=== PATIENT | female | born 1995 | race Two or more races ===

== ENCOUNTER 2021-09-27 04:55 | Emergency (ER) | payer OTHER, SELFPAY ==
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
[2021-09-27 05:32] VITALS: BP 190/138; PULSE 92; RESP 18; TEMP 36.2; O2SAT 100; BMI 32.8
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
[2021-09-27 09:30] LABS: MANUAL DIFF FLAG NO
[2021-09-27 09:31] LABS: Appearance Urine CLEAR; Color Urine YELLOW; Glucose Urine UA NEG (NEG); Leukocyte Esterase Urine NEG (NEG); Nitrite Urine NEG (NEG); PH 5.5 (5.0-8.0); Urine Blood NEG (NEG); Urine Ketones NEG (NEG); Urine Protein TRACE MG/DL (NEG-TRACE)
[2021-09-27 09:32] LABS: Basophils Percent Auto 0.7 % (0-2); Eosinophils Absolute Auto 0.1 X10*3/uL (0.0-0.4); Eosinophils Percent Auto 1.7 % (0-4); Hematocrit 38.4 % (37.0-47.0); Hemoglobin 13.6 g/dl (12.0-16.0); Imm Gran Abs Auto 0.02 X10*3/uL (0.00-0.03); Imm Gran Pct Auto 0.3 % (0.0-0.4); Lymphocytes Absolute Auto 1.7 X10*3/uL (1.2-4.9); Lymphocytes Percent Auto 29.7 % (20-40); Mean Corpuscular HGB Conc 35.4 g/dl (31.0-35.0); Mean Corpuscular Hemoglobin 28.8 pg (27.0-33.0); Mean Corpuscular Volume 81.4 fL (80.0-98.0); Mean Platelet Volume 12.2 fL (9.4-12.3); Monocytes Absolute Auto 0.3 X10*3/uL (0.1-1.2); Monocytes Percent Auto 5.7 % (2-11); Neutrophils Absolute Auto 3.6 x10*3/uL (2.0-8.3); Neutrophils Percent Auto 61.9 % (45-73); Platelet Count 239 X10*3/uL (160-400); Red Blood Count 4.72 X10*6/uL (4.20-5.50); Red Cell Distribution Width 13.8 % (11.0-16.0); White Blood Count 5.8 X10*3/uL (4.8-10.8)
[2021-09-27] MEDS: 0.9 % Sodium Chloride 1,000 ML 999 ML IV (09:34)
[2021-09-27] MEDS: ondansetron HCL 4 MG/2 ML VIAL IVPUSH (09:35)
[2021-09-27] MEDS: Metoclopramide HCl 10 MG/2 ML VIAL IVPUSH (09:36)
[2021-09-27] MEDS: Acetaminophen 325 MG TABLET 650 MG PO (09:40)
[2021-09-27] MEDS: diazePAM 5 MG TABLET PO (09:40)
[2021-09-27 09:42] LABS: RBC Urine 0-2 /HPF (0); WBC Urine 0-2 /HPF (0-4)
[2021-09-27 09:43] LABS: Bacteria Urine TRACE /LPF; Mucus Urine TRACE /LPF; Squamous Epithelial Cell Urine TRACE /LPF
[2021-09-27 09:48] LABS: COVID-19 Test Negative (Negative); IDNOW Serial# 9DD0AD1C
[2021-09-27 09:54] LABS: Alanine Aminotransferase 6 U/L (0-31); Albumin Level 4.3 g/dL (3.5-5.0); Alkaline Phosphatase 50 U/L (39-117); Anion Gap 13 (12-20); Aspartate Amino Transferase 11 U/L (5-31); Bilirubin Total 0.5 mg/dL (0.0-1.0); Blood Urea Nitrogen 28 mg/dL (9-16); Calcium 9.6 mg/dL (8.4-10.2); Carbon Dioxide 22 mmol/L (22-29); Chloride 109 mmol/L (96-108); Estimated Glomerular Filt Rate 42; Glucose Random 92 mg/dL (60-115); Potassium 4.4 mmol/L (3.3-5.1); Sodium 140 mmol/L (135-145); Total Protein 7.2 g/dL (6.5-8.0)
[2021-09-27 10:08] LABS: HCG Quantitative < 2 mIU/mL
[2021-09-27 10:31] VITALS: BP 165/114; PULSE 91; RESP 16; TEMP 36.6; O2SAT 97
[2021-09-27] MEDS: Butalb/Acetamin/Caff 50/325/40 TABLET 1 TAB PO (12:38)
== END 2021-09-27 12:58 | disposition home or self-care (01) ==
PROVIDERS: Physician Assistant; Emergency Provider Emergency Medicine; PCP Internal Medicine
DX: M54.2 Cervicalgia (principal); G43.009 Migraine without aura, not intractable, without status migrainosus; M54.6 Pain in thoracic spine; Z20.822 Contact with and (suspected) exposure to COVID-19; Z79.899 Other long term (current) drug therapy
CPT/HCPCS: 36415; 70450; 72125; 72128; 80053; 81001; 82550; 84702; 85025; 87635; 96374; 96376; 99284; J2405; J2765

== ENCOUNTER 2022-02-19 07:44 | Outpatient (REF) | payer OTHER, SELFPAY ==
--- NOTE | ~2022-02-19 | XR_ITS ---
EXAMINATION: XR SHOULDER, LEFT CLINICAL INFORMATION: Pain COMPARISON: None TECHNIQUE: AP external rotation, Grashey, scapular Y, and axillary views of the left shoulder. FINDINGS: The bones and soft tissues are normal. No fracture. Glenohumeral and acromioclavicular alignment is anatomic with normal joint space. No abnormal soft tissue calcifications. XR/XR shoulder LT min 2V IMPRESSION: Normal left shoulder.
== END 2022-02-19 07:45 | disposition home or self-care (01) ==
LOC: HO.HOSX 07:44
PROVIDERS: Visit Provider Physician Assistant
DX: M25.812 Other specified joint disorders, left shoulder (principal); M75.50 Bursitis of unspecified shoulder
CPT/HCPCS: 20610; 73030; 99202; J1020

== ENCOUNTER 2022-03-24 17:32 | Emergency (ER) | payer OTHER, SELFPAY ==
[2022-03-24] VITALS (8 sets, daily range): BP systolic 181–203; BP diastolic 122–142; PULSE 76–92; RESP 16–18; TEMP 36.9; O2SAT 97–99; BMI 34.2
--- NOTE | ~2022-03-24 | XR_ITS ---
EXAMINATION: XR CHEST CLINICAL INFORMATION: Cough. COMPARISON: None TECHNIQUE: 2 views of the chest were obtained. FINDINGS: No significant abnormality is noted involving the heart, lungs, mediastinum, bony thorax or soft tissues. XR/XR chest 2V IMPRESSION: Unremarkable examination.
[2022-03-24] MEDS: Acetaminophen 325 MG TABLET 650 MG PO (20:00)
[2022-03-24 20:06] LABS: MANUAL DIFF FLAG NO
[2022-03-24 20:09] LABS: Basophils Percent Auto 0.4 % (0-2); Eosinophils Absolute Auto 0.3 X10*3/uL (0.0-0.4); Eosinophils Percent Auto 3.9 % (0-4); Hematocrit 40.2 % (37.0-47.0); Hemoglobin 14.1 g/dl (12.0-16.0); Imm Gran Abs Auto 0.01 X10*3/uL (0.00-0.03); Imm Gran Pct Auto 0.1 % (0.0-0.4); Lymphocytes Absolute Auto 2.2 X10*3/uL (1.2-4.9); Lymphocytes Percent Auto 30.6 % (20-40); Mean Corpuscular HGB Conc 35.1 g/dl (31.0-35.0); Mean Corpuscular Hemoglobin 27.2 pg (27.0-33.0); Mean Corpuscular Volume 77.6 fL (80.0-98.0); Mean Platelet Volume 10.6 fL (9.4-12.3); Monocytes Absolute Auto 0.8 X10*3/uL (0.1-1.2); Monocytes Percent Auto 10.6 % (2-11); Neutrophils Absolute Auto 3.9 x10*3/uL (2.0-8.3); Neutrophils Percent Auto 54.4 % (45-73); Platelet Count 233 X10*3/uL (160-400); Red Blood Count 5.18 X10*6/uL (4.20-5.50); Red Cell Distribution Width 15.1 % (11.0-16.0); White Blood Count 7.1 X10*3/uL (4.8-10.8)
[2022-03-24 20:24] LABS: Alanine Aminotransferase 19 U/L (0-31); Albumin Level 4.3 g/dL (3.5-5.0); Alkaline Phosphatase 67 U/L (39-117); Anion Gap 13 (12-20); Aspartate Amino Transferase 20 U/L (5-31); Bilirubin Total 0.5 mg/dL (0.0-1.0); Blood Urea Nitrogen 18 mg/dL (9-16); Calcium 8.9 mg/dL (8.4-10.2); Carbon Dioxide 22 mmol/L (22-29); Chloride 108 mmol/L (96-108); Estimated Glomerular Filt Rate 47; Glucose Random 98 mg/dL (60-115); Potassium 4.2 mmol/L (3.3-5.1); Sodium 139 mmol/L (135-145); Total Protein 7.3 g/dL (6.5-8.0)
[2022-03-24 20:26] LABS: Influenza A Negative (Negative); Influenza B2 Negative (Negative)
[2022-03-24 20:28] LABS: COVID-19 Test Negative (Negative); IDNOW Serial# 9DB6401D
--- NOTE | 2022-03-24 21:01 | ED.URI ---
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 Patient does take blood pressure medication but her blood pressure has been significantly elevated. Related Data Home Medications Medication Instructions Recorded Confirmed amitriptyline 25 mg tablet 0 mg PO 02/19/22 amlodipine 10 mg tablet 10 mg PO DAILY 02/19/22 carvedilol 25 mg tablet 25 mg PO BID 02/19/22 fluticasone propionate 50 2 spray intranasal DAILY 02/19/22 mcg/actuation nasal spray,suspension hydralazine 25 mg tablet 25 mg PO TID 02/19/22 pantoprazole 40 mg tablet,delayed 80 mg PO BID PRN 02/19/22 release tacrolimus 5 mg capsule, 5 mg PO BID 02/19/22 immediate-release Previous Rx's Medication Instructions Recorded qramgdwkfd-knslzoijywwss-vygqrtdh 1 cap PO Q8H PRN pain/migraine #7 09/27/21 50 mg-300 mg-40 mg capsule caps (Fioricet) diazepam 5 mg tablet (Valium) 5 mg PO BID 2 days #4 tabs 09/27/21 ondansetron 4 mg disintegrating 4 mg PO Q8H 2 days #6 tabs 09/27/21 tablet prednisone 20 mg tablet 40 mg PO DAILY 3 days #6 tabs 09/27/21 benzonatate 200 mg capsule 200 mg PO TID PRN cough #10 caps 03/24/22 Allergies Allergy/AdvReac Type Severity Reaction Status Date / Time amoxicillin Allergy Unknown Verified 03/24/22 19:52 Cephalosporins Allergy Unknown Verified 03/24/22 19:52 Penicillins Allergy Unknown Verified 03/24/22 19:52 sulfamethoxazole Allergy Unknown Verified 03/24/22 19:52 [From Bactrim] trimethoprim [From Bactrim] Allergy Unknown Verified 03/24/22 19:52 Review of Systems Review of Systems: Pertinent positives and negatives as stated in HPI 10 point review of systems is otherwise negative. 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 GENERAL: Well developed, well nourished, in no acute distress. HEAD: Normocephalic/atraumatic EYES: PERRLA, EOMI EARS: Ext canals without abnormality, TMs non-bulging and non-erythematous; mild bulging on the left TM with erythema NOSE: Nares patent bilateral OROPHARYNX: no oral lesions noted, posterior pharynx clear and non-erythematous without noted tonsillar enlargement/erythema/exudates NECK: Supple, no adenopathy LUNGS: Normal breath sounds. No adventitious sounds or accessory muscle use. SpO2<98> CARDIOVASCULAR: Regular rate and rhythm without noted murmurs, no JVD or lower extremity edema. ABDOMEN: Soft, non-tender, non-distended with bowel sounds. MUSCULOSKELETAL: No tenderness, deformities, or effusions noted on gross inspection. EXTREMITIES: No cyanosis, clubbing or edema. SKIN: Inspection of the skin reveals no rashes NEUROLOGIC: Alert and oriented x 4. Strength and sensation to light touch were grossly intact x 4. Course Course Course Narrative: 26-year-old female with history and clinical presentation most consistent with viral syndrome and hypertension. Will control blood pressure, give IV fluids and on review of all investigations COVID-19 and influenza are both negative. Low clinical suspicion for meningitis Review of all investigations continues to show hypertension but on re-evaluation patient is feeling better after the IV fluids and Tessalon Perles. A total of 20 mg of labetalol was given to the patient as well as 0.5 mg of Klonopin and patient's blood pressure remains at 180s over 128, she is nonfocal in denies any chest pain but is requesting to go home and will receive 200 mg labetalol p.o. in be discharged home. MDM - URI/Sore Throat Lab Data Result diagrams: 03/24/22 20:01 03/24/22 20:01 Labs: Lab Results 03/24/22 03/24/22 03/24/22 Range/Units 19:54 20:01 20:01 WBC 7.1 (4.8-10.8) X10*3/uL RBC 5.18 (4.20-5.50) X10*6/uL Hgb 14.1 (12.0-16.0) g/dl Hct 40.2 (37.0-47.0) % MCV 77.6 L (80.0-98.0) fL MCH 27.2 (27.0-33.0) pg MCHC 35.1 H (31.0-35.0) g/dl RDW 15.1 (11.0-16.0) % Plt Count 233 (160-400) X10*3/uL MPV 10.6 (9.4-12.3) fL Immature Gran % (Auto) 0.1 (0.0-0.4) % Neut % (Auto) 54.4 (45-73) % Lymph % (Auto) 30.6 (20-40) % [place] % (Auto) 10.6 (2-11) % Eos % (Auto) 3.9 (0-4) % Baso % (Auto) 0.4 (0-2) % Lymph # (Auto) 2.2 (1.2-4.9) X10*3/uL [place] # (Auto) 0.8 (0.1-1.2) X10*3/uL Eos # (Auto) 0.3 (0.0-0.4) X10*3/uL Baso # (Auto) 0.0 (0.0-0.2) X10*3/uL Abs Immat Gran (auto) 0.01 (0.00-0.03) X10*3/uL Absolute Neuts (auto) 3.9 (2.0-8.3) x10*3/uL Absolute Nucleated RBC 0.000 (0.0-0.012) X10*3/uL Nucleated RBC % (auto) 0.0 (0.0-0.2) /100WBC Sodium 139 (135-145) mmol/L Potassium 4.2 (3.3-5.1) mmol/L Chloride 108 (96-108) mmol/L Carbon Dioxide 22 (22-29) mmol/L Anion Gap 13 (12-20) BUN 18 H (9-16) mg/dL Creatinine 1.37 (0.5-1.4) mg/dL Estim Creat Clear Calc 59.0 Estimated GFR 47 Random Glucose 98 (60-115) mg/dL Calcium 8.9 D (8.4-10.2) mg/dL Total Bilirubin 0.5 (0.0-1.0) mg/dL AST 20 D (5-31) U/L ALT 19 (0-31) U/L Alkaline Phosphatase 67 D (39-117) U/L Total Protein 7.3 (6.5-8.0) g/dL Albumin 4.3 (3.5-5.0) g/dL TSH 0.84 (0.32-4.0) uIU/mL COVID-19 (SUZY) Negative (Negative) COVID-19 Clin Com See Note Influenza Type A (MICHELINE) (Negative) Influenza Type B (MICHELINE) (Negative) Influenza A & B Note 03/24/22 Range/Units 20:01 WBC (4.8-10.8) X10*3/uL RBC (4.20-5.50) X10*6/uL Hgb (12.0-16.0) g/dl Hct (37.0-47.0) % MCV (80.0-98.0) fL MCH (27.0-33.0) pg MCHC (31.0-35.0) g/dl RDW (11.0-16.0) % Plt Count (160-400) X10*3/uL MPV (9.4-12.3) fL Immature Gran % (Auto) (0.0-0.4) % Neut % (Auto) (45-73) % Lymph % (Auto) (20-40) % [place] % (Auto) (2-11) % Eos % (Auto) (0-4) % Baso % (Auto) (0-2) % Lymph # (Auto) (1.2-4.9) X10*3/uL [place] # (Auto) (0.1-1.2) X10*3/uL Eos # (Auto) (0.0-0.4) X10*3/uL Baso # (Auto) (0.0-0.2) X10*3/uL Abs Immat Gran (auto) (0.00-0.03) X10*3/uL Absolute Neuts (auto) (2.0-8.3) x10*3/uL Absolute Nucleated RBC (0.0-0.012) X10*3/uL Nucleated RBC % (auto) (0.0-0.2) /100WBC Sodium (135-145) mmol/L Potassium (3.3-5.1) mmol/L Chloride (96-108) mmol/L Carbon Dioxide (22-29) mmol/L Anion Gap (12-20) BUN (9-16) mg/dL Creatinine (0.5-1.4) mg/dL Estim Creat Clear Calc Estimated GFR Random Glucose (60-115) mg/dL Calcium (8.4-10.2) mg/dL Total Bilirubin (0.0-1.0) mg/dL AST (5-31) U/L ALT (0-31) U/L Alkaline Phosphatase (39-117) U/L Total Protein (6.5-8.0) g/dL Albumin (3.5-5.0) g/dL TSH (0.32-4.0) uIU/mL COVID-19 (SUZY) (Negative) COVID-19 Clin Com Influenza Type A (MICHELINE) Negative (Negative) Influenza Type B (MICHELINE) Negative (Negative) Influenza A & B Note See Note Discharge Plan Discharge Clinical Impression: Viral syndrome, Hypertensive urgency, Cough Patient Disposition: Home, Self-Care Instructions: Viral Syndrome (ED), Hypertensive Crisis (ED), Acute Cough (ED) Additional Instructions: 1. Tylenol 1000 mg, orally, every 6 hours as needed for pain control. Do not exceed 4000 mg within 24 hours. 2. Continue to take all of your home medication as prescribed. 3. I recommend that you continue to test your self at home for COVID-19 as you may become positive over the next couple of days. 4. Please call the office of your primary care provider in the morning to set up an appointment for re-evaluation and further management of your blood pressure. Return to the ER for worsening symptoms. Prescriptions: New benzonatate 200 mg capsule 200 mg PO TID PRN (Reason: cough) Qty: 10 0RF No Action ondansetron 4 mg tablet,disintegrating 4 mg PO Q8H 2 Days Qty: 6 0RF diazepam [Valium] 5 mg tablet 5 mg PO BID 2 Days Qty: 4 0RF [id number]-[id number] [Fioricet] 50-300-40 mg capsule 1 cap PO Q8H PRN (Reason: pain/migraine) Qty: 7 0RF prednisone 20 mg tablet 40 mg PO DAILY 3 Days Qty: 6 0RF pantoprazole 40 mg tablet,delayed release (DR/EC) 80 mg PO BID PRN amlodipine 10 mg tablet 10 mg PO DAILY carvedilol 25 mg tablet 25 mg PO BID tacrolimus 5 mg capsule 5 mg PO BID amitriptyline 25 mg tablet 0 mg PO hydralazine 25 mg tablet 25 mg PO TID fluticasone propionate 50 mcg/actuation spray,suspension 2 spray intranasal DAILY Referrals: Aisha Asencio MD [Primary Care Provider] -
[2022-03-24 21:12] LABS: Thyroid Stimulating Hormone 0.84 uIU/mL (0.32-4.0)
[2022-03-24] MEDS: Benzonatate 100 MG CAPSULE 200 MG PO (21:17)
[2022-03-24] MEDS: 0.9 % Sodium Chloride 500 ML 999 ML IV (21:22)
[2022-03-24] MEDS: clonazePAM 0.5 MG TABLET PO (22:44)
[2022-03-24] MEDS: Labetalol HCL 200 MG TABLET PO (23:57)
== END 2022-03-25 00:14 | disposition home or self-care (01) ==
PROVIDERS: Emergency Provider Student in an Organized Health Care Education/Training Program; PCP Internal Medicine
DX: B34.9 Viral infection, unspecified (principal); I16.0 Hypertensive urgency; R05.9 Cough, unspecified; Z20.822 Contact with and (suspected) exposure to COVID-19; Z79.899 Other long term (current) drug therapy
CPT/HCPCS: 71046; 80053; 84443; 85025; 87502; 87635; 96374; 96376; 99284; 99285

== ENCOUNTER 2022-03-31 15:50 | Outpatient (RCR) | payer OTHER, SELFPAY ==
--- NOTE | 2022-04-01 14:43 | MHC.PT.EP ---
[facility] [place] [facility] [place] [facility] [place] Office [address] Silvestre Serrano [address] [phone] F: [phone] F: [phone] F: [phone] F: [phone] Physical Therapy Plan of Care Date of Evaluation: Date of Surgery: N/A Diagnosis: left shoulder pain (RC) Assessment: pt is [age] y/o presenting to physical therapy w/ referring diagnosis of bursitis of L shoulder. Impairments include pain, decreased range of motion, decreased strength, impaired functional mobility, impaired postural awareness, and gait deviations. pt is a good candidate for skilled PT due to age, potential remediation of impairments, typical disease/condition progression and prognosis, comorbidities, and motivation. pt would benefit from tailored strengthening and stretching exercise program, functional training, gait training, postural re-training, neuromuscular re-education, modalities as needed for pain, equipment safety demonstration. Frequency and Duration: The patient will be seen 2x/wk for 5 wks Short Term Goals: pt will be I w/ HEP to promote self-management of condition. pt will demo proper sitting posture w/ lumbar roll to promote neutral spine w/ seated ADLs. pt will improve L shoulder flexion by 10 degrees to promote ease in reaching for objects on higher shelves. Orange Picker Goals: pt will improve L shoulder flexion and elbow flexion strength by 1 MMT grade to improve tolerance for carrying groceries. pt will report a statistically significant improvement in self-reported outcome measure, SPADI, to promote return to PLOF. Treatment Plan: Modalities to reduce pain, spasms and effusion. Manual therapy to restore motion and function. Therapeutic exercise to improve strength and flexibility. Neuromuscular re-education for posture and balance. Therapeutic activities to return to functional activities of daily living. Electronically signed by: Barbie Doss PT, DPT Please sign and return to therapist. Thank you for your referral.
--- NOTE | 2022-04-28 17:10 | MHC.PT.DC ---
[facility] [place] Office [place] Office [place] Office [address] Silvestre Serrano [address] [facility] [phone] F: [phone] F: [phone] F: [phone] F: [phone] Physical Therapy Discharge Report Diagnosis: left shoulder pain (RC) Date of Surgery: N/A Date of Evaluation: 03/31/22 Date of Discharge: 04/28/22 Treatments to Date: 1 Cancellations to Date: 2 No Shows to Date: 2 Discharge Status: Visit Non-compliance Discharge Summary: The patient has not attended any scheduled visits since the initial evaluation. It has been nearly a month since her last appointment. Current status is unknown. She is discharged from this physical therapy plan of care for non-compliance. Electronically signed by: Barbie Doss PT, DPT Please sign and return to therapist. Thank you for your referral.
== END 2022-04-28 17:11 | disposition home or self-care (01) ==
LOC: HO.PT 15:50
PROVIDERS: PCP Internal Medicine; Visit Provider Physician Assistant
DX: M25.812 Other specified joint disorders, left shoulder (principal); M75.50 Bursitis of unspecified shoulder
CPT/HCPCS: 97140; 97162